=== PATIENT | male | born 1980 | race Two or more races ===

== ENCOUNTER 2025-02-12 10:47 | Inpatient (IN) | payer OTHER ==
[~2025-02-12] VITALS: Ht 175.3 cm; Wt 84.7 kg
--- NOTE | 2025-02-12 11:02 | ECG ---
[facility] Test Date: 2025-02-12 Test Time: 10:59:02 Pat Name: JEFFREY HILL Department: ER Room: [address] [place] [address] Gender: M Client Support Analyst: DANISHA : 1980 Requested By: RASHAD LAWS Order Number: [id number] Reading MD: Evaristo Pittman Measurements Intervals [place] Rate: 71 P: 81 NV: 185 QRS: -30 QRSD: 131 T: 102 QT: 439 QTc: 478 Interpretive Statements Sinus rhythm Consider left atrial enlargement LVH with secondary repolarization abnormality Borderline prolonged QT interval Electronically Signed On 02-15-2025 19:57:49 PDT by Evaristo Pittman Please click the below link to view image of tracing.
--- NOTE | 2025-02-12 11:14 | ED.PDOC ---
HPI Comments This is a 44 year old male presenting to the ED with chief complaint of chest pain. Patient reports that he was sudden awoken at 4am this morning with squeezing 9/10 left sided chest pain with associated SOB. Patient relays that he has had similar symptoms in the past. Patient states he has history of a previous CVA in June and [place]. Patient denies any N/V, headache, dizziness, cough, fever, chills, blurred vision, numbness, weakness, or tingling. Chief Complaint: Chest Pain Time Seen by MD: 11:12 Reviewed Notes: Nurses Notes, Medications, Allergies Allergies: Coded Allergies: NO KNOWN ALLERGIES (Unverified , 02/12/25) Information Source: Patient Mode of Arrival: Ambulatory Severity: Moderate Timing: Hours Duration: Since onset Prehospital treatment: None Location: Chest (L) Radiation: No Radiation Quality: Squeezing Onset: At Rest Cardiac Risk Factors: HTN PE Risk Factors: None History of: Similar pain in past, [place] Associated Signs and Symptoms: SOB Past Medical History PAST MEDICAL HISTORY: CHF, CVA, HTN, Liver, [place] Surgical History: Denies all surgeries Family History Family History: Reviewed,noncontributory to illness, Family hx of Cancer Social History Smoker: Non-Smoker Alcohol: Denies ETOH Use Drugs: Denies Drug Use Lives In: Home Constitutional: denies: chills, diaphoresis, fatigue, fever, malaise, sweats, weakness, others EENTM: denies: blurred vision, double vision, ear bleeding, ear discharge, ear drainage, ear pain, ear ringing, eye pain, eye redness, hearing loss, mouth pain, mouth swelling, nasal discharge, nose bleeding, nose congestion, nose pain, photophobia, tearing, throat pain, throat swelling, voice changes, others Respiratory: reports: shortness of breath; denies: cough, hemoptysis, orthopnea, SOB at rest, SOB with excertion, stridor, wheezing, others Cardiovascular: reports: chest pain; denies: dizzy spells, diaphoresis, Dyspnea on exertion, edema, irregular heart beat, left arm pain, lightheadedness, palpitations, PND, syncope, others Gastrointestinal: denies: abdomen distended, abdominal pain, blood streaked bowels, constipated, diarrhea, dysphagia, difficulty swallowing, hematemesis, melena, nausea, poor appetite, poor fluid intake, rectal bleeding, rectal pain, vomiting, others Genitourinary: denies: burning, dysuria, flank pain, frequency, hematuria, incontinence, penile discharge, penile sore, pain, testicle pain, testicle sw elling, urgency, others Neurological: denies: dizziness, fainting, headache, left sided numbness, left sided weakness, numbness, paresthesia, pre-existing deficit, right sided numbness, right sided weakness, seizure, speech problems, tingling, tremors, weakness, others Musculoskeletal: denies: back pain, gout, joint pain, joint swelling, muscle pain, muscle stiffness, neck pain, others Integumetry: denies: bruises, change in color, change in hair/nails, dryness, laceration, lesions, lumps, rash, wounds, others Allergic/Immunocompromised: denies: Difficulty Healing, Frequent Infections, Hives, Itching, others Hematologic/Lymphatic: denies: anemia, blood clots, easy bleeding, easy bruising, swollen glands, others Endocrine: denies: excessive hunger, excessive sweating, excessive thirst, excessive urination, flushing, intolerance to cold, intolerance to heat, unexplained weight gain, unexplained weight loss, others Psychiatric: denies: anxiety, bipolar disorder, depression, hopeless, panic disorder, schizophrenia, sleepless, suicidal, others All Other Systems: Reviewed and Negative Physical Exam General Appearance: Moderate Distress HEENT: Normal ENT Inspection, Pharynx Normal, TMs Normal Neck: Full Range of Motion, Non-Tender, Normal, Normal Inspection Respiratory: Chest Non-Tender, Lungs Clear, No Accessory Muscle Use, No Respiratory Distress, Normal Breath Sounds Cardiovascular: No Edema, No JVD, No Murmur, No Gallop, Normal Peripheral Pulses, Regular Rate/Rhythm Breast Exam: Deferred Gastrointestinal: No Organomegaly, Non Tender, No Pulsatile Mass, Normal Bowel Sounds, Soft Genitalia: Deferred Pelvic: Deferred Rectal: Deferred Extremities: No calf tenderness, Normal capillary refill, Normal inspection, Normal range of motion, Non-tender, No pedal edema Musculoskeletal : Apperance: Normal Neurologic: Alert, manager basketball II-XII nml as Tested, Motor Weakness, Normal Affect, Normal Mood, No Sensory Deficits Cerebellar Function: Normal Reflexes: Normal Skin: Dry, Pallor, Warm Lymphatic: No Adenopathy EKG EKG : Pulse Rate (adult): 71 [place]: Normal Cardiac Rhythm: NSR Block: None Hypertrophy: LAE ST: Normal Was a procedure done? Was a procedure done?: No CP Differential Dx Differential Diagnosis: Angina, [place], Pulmonary Embolus Differential Diagnosis: CHF Differential Diagnosis: Pericarditis X-Ray, Labs, Meds, VS Vital Signs Date Time Temp Pulse Resp B/P (MAP) Pulse Ox O2 Delivery O2 Flow Rate FiO2 02/12/25 11:53 68 02/12/25 11:25 87 20 97 Room Air* 0 21 02/12/25 11:25 98.3 87 20 97/64 (75) 97 98.3 02/12/25 11:14 71 02/12/25 10:59 71 02/12/25 10:50 97.5 82 18 104/58 (73) 97 97.5 Lab Test 02/12/25 12:06 02/12/25 11:09 Range/Units Troponin I High Sensitivity 8 8 </=54 ng/L White Blood Count 8.0 4.4-10.8 10^3/uL Red Blood Count 4.40 L 4.5-5.90 10^6/uL Hemoglobin 13.8 13.5-17.5 g/dL Hematocrit 41.6 41.0-53.0 % Mean Corpuscular Volume 94.5 80.0-100.0 fL Mean Corpuscular Hemoglobin 31.4 28.0-32.0 pg Mean Corpuscular Hemoglobin Concent 33.2 32.0-36.0 g/dL Red Cell Distribution Width 15.5 H 11.8-14.3 % Platelet Count 392 140-450 10^3/uL Mean Platelet Volume 7.2 6.9-10.8 fL Neutrophils (%) (Auto) 64.7 37.0-80.0 % Lymphocytes (%) (Auto) 22.9 10.0-50.0 % Monocytes (%) (Auto) 7.8 0.0-12.0 % Eosinophils (%) (Auto) 3.3 0.0-7.0 % Basophils (%) (Auto) 1.3 0.0-2.0 % Neutrophils # (Auto) 5.2 1.6-8.6 10 ^3/uL Lymphocytes # (Auto) 1.8 0.4-5.4 10 ^3/uL Monocytes # (Auto) 0.6 0-1.3 10 ^3/uL Eosinophils # (Auto) 0.3 0-0.8 10 ^3/uL Basophils # (Auto) 0.1 0-0.2 10 ^3/uL Nucleated Red Blood Cells 0.1 % D-Dimer, Quantitative 0.71 H 0.0-0.49 mg/L FEU Urine Color Light-yellow Yellow Urine Clarity Clear Clear Urine pH 5.5 5.0-9.0 Urine Specific [place] 1.021 1.001-1.035 Urine Protein Negative Negative Urine Ketones Negative Negative Urine Blood Negative Negative /uL Urine Nitrite Negative Negative Urine Bilirubin Negative Negative Urine Urobilinogen Normal Negative mg/dL Urine Leukocyte Esterase Negative Negative /uL Urine RBC None seen 0 - 3 /hpf Urine Microscopic WBC 1 0-3 /HPF Urine Squamous Epithelial Cells None seen <5 /hpf Urine Bacteria None seen None Seen /hpf Urine Hyaline Casts Few 0 - 2 /lpf Urine Glucose Normal Normal mg/dL Sodium Level 144 136-145 mmol/L Potassium Level 3.5 3.5-5.1 mmol/L Chloride Level 110 H 98-107 mmol/L Carbon Dioxide Level 22 20-31 mmol/L Anion Gap 12 5-15 Blood Urea Nitrogen 20 9-23 mg/dL Creatinine 1.13 0.700-1.30 mg/dL Glomerular Filtration Rate Calc 81 >90 mL/min BUN/Creatinine Ratio 17.7 10.0-20.0 Serum Glucose 91 74-106 mg/dL Calcium Level 9.6 8.7-10.4 mg/dL B-Type Natriuretic Peptide 1276.79 0-100 pg/mL Current Medications Medications (Trade) Dose Ordered Sig/Turner Route Start Time Stop Time Status Last Admin Aspirin 162 mg ONCE ONCE PO 02/12/25 11:15 02/12/25 11:16 DC 02/12/25 11:47 Sodium Chloride 1,000 ml @ 1,000 mls/hr Q1H ONCE IV 02/12/25 11:30 02/12/25 12:29 DC 02/12/25 11:40 IV Hep-Lock was established The patient was given aspirin here in the emergency department's The patient was bolused with a normal saline bolus of 1 L secondary to hypotension at 97/64 The patient's urine test is negative The chemistry panel is within normal limits The BNP is elevated at 1276.79 The CBC is within normal limits The troponin level is negative x2 A chest x-ray shows: IMPRESSION: Mild cardiomegalyNo acute cardiopulmonary disease. A cardiology consult be obtained The patient is being admitted Images Reviewed?: Images reviewed and evaluated by me Time of 1ST Reevaluation: 13:56 Reevaluation 1ST: Unchanged Patient Education/Counseling: Diagnosis, Treatment, Prognosis Family Education/Counseling: No Family Present Additional Information Reviewed patient's previous visit(s): None The following tests were ordered, and results were reviewed by me: CBC, BMP, Troponin, EKG, UA, BNP, Chest XR Additional information was gathered from interviewing the following independent historian: None I reviewed and agreed with the following test results read by other provider: Chest XR I discussed treatments and results with medical personnel and: PATIENT Comprehensive systems review obtained and negative except for what is stated in the HPI. SEPSIS Sepsis Screen Physician Orders Electrocardigram (02/12/25 14:01) Chest Portable (02/12/25 11:13) Heplock Iv (02/12/25 11:13) Clay Temperer (02/12/25 11:13) Blood Pressure (02/12/25 11:13) Pulse Oximetry (02/12/25 11:13) Vital Signs Date Time Temp Pulse Resp B/P (MAP) Pulse Ox O2 Delivery O2 Flow Rate FiO2 02/12/25 11:53 68 02/12/25 11:25 87 20 97 Room Air* 0 21 02/12/25 11:25 98.3 87 20 97/64 (75) 97 98.3 02/12/25 11:14 71 02/12/25 10:59 71 02/12/25 10:50 97.5 82 18 104/58 (73) 97 97.5 Laboratory Tests Test 02/12/25 11:09 White Blood Count 8.0 10^3/uL (4.4-10.8) Medications Medications Dose Ordered Sig/Turner Route Start Time Stop Time Status Last Admin Dose Admin Aspirin 162 mg ONCE ONCE PO 02/12/25 11:15 02/12/25 11:16 DC 02/12/25 11:47 Sodium Chloride 1,000 ml @ 1,000 mls/hr Q1H ONCE IV 02/12/25 11:30 02/12/25 12:29 DC 02/12/25 11:40 Departure 1 Departure Time of Disposition: 13:57 Impression: Primary Impression: Chest pain, rule out acute myocardial infarction Disposition: 09 ADMITTED INPATIENT Admit to: Tele Condition: Fair Critical Care Note Critical Care Time?: Yes (45 min-critical care time only) Stability Stability form required: Yes Unstable for transfer: Telemetry monitoring (Telemetry monitoring required), ED Physician Assesment (Clinical assesment) Heart Score Heart Score: Heart Score Response (Comments) Value History Highly Suspicious 2 EKG Repolarization Disturb 1 Age 45-64 1 Risk Factors >3 or Hx ASHD 2 Troponin Normal limit 0 Total 6 I personally scribed for RASHAD LAWS MD ([email or web address]) on 02/12/25 at 11:14. Electronically submitted by Brad Monroe ([email or web address]). I personally scribed for RASHAD LAWS MD ([email or web address]) on 02/12/25 at 11:14. Electronically submitted by Brad Monroe ([email or web address]). I personally scribed for RASHAD LAWS MD ([email or web address]) on 02/12/25 at 11:15. Electronically submitted by Brad Monroe ([email or web address]). RASHAD LAWS MD Feb 12, 2025 11:14
[2025-02-12 11:25] VITALS: PULSE 87; RESP 20; O2SAT 97
[2025-02-12 11:29] LABS: Basophils # (auto) 0.1 10 ^3/uL (0-0.2); Basophils % (auto) 1.3 % (0.0-2.0); Eosinophils # (auto) 0.3 10 ^3/uL (0-0.8); Eosinophils % (auto) 3.3 % (0.0-7.0); Hematocrit 41.6 % (41.0-53.0); Hemoglobin 13.8 g/dL (13.5-17.5); Lymphocytes # (auto) 1.8 10 ^3/uL (0.4-5.4); Lymphocytes % (auto) 22.9 % (10.0-50.0); Mean Corpuscular Hemoglobin 31.4 pg (28.0-32.0); Mean Corpuscular Hgb Conc. 33.2 g/dL (32.0-36.0); Mean Corpuscular Volume 94.5 fL (80.0-100.0); Monocytes # (auto) 0.6 10 ^3/uL (0-1.3); Monocytes % (auto) 7.8 % (0.0-12.0); Neutrophils # (auto) 5.2 10 ^3/uL (1.6-8.6); Neutrophils % (auto) 64.7 % (37.0-80.0); Nucleated Red Blood Cells % 0.1 %; Platelet Count (auto) 392 10^3/uL (140-450); Red Cell Distribution Width 15.5 % (11.8-14.3)
[2025-02-12 11:31] LABS: Sodium 144 mmol/L (136-145)
[2025-02-12 11:32] LABS: Anion Gap 12 (5-15); Calcium 9.6 mg/dL (8.7-10.4); Carbon Dioxide 22 mmol/L (20-31)
[2025-02-12 11:34] LABS: Chloride 110 mmol/L (98-107); Potassium 3.5 mmol/L (3.5-5.1)
[2025-02-12 11:37] LABS: BUN/Creatinine Ratio 17.7 (10.0-20.0); Blood Urea Nitrogen 20 mg/dL (9-23); Glucose 91 mg/dL (74-106)
[2025-02-12] MEDS: SODIUM CHLORIDE 0.9% 1,000 ML IV ONE (11:40)
[2025-02-12] MEDS: ASPirin 81 mg TAB PO ONE (11:47)
--- NOTE | 2025-02-12 12:14 | ECG ---
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
--- NOTE | 2025-02-12 12:43 | DVH ---
EXAM: XY CHEST PORTABLE Indication: CP Technique: Single frontal view of the chest was obtained Comparison: None FINDINGS: Lines and Tubes: None Lungs: No focal consolidation. Pleura: No effusion. No pneumothorax. Cardiomediastinal contours: Mild cardiomegaly Bones: No acute osseous abnormality. IMPRESSION: Mild cardiomegalyNo acute cardiopulmonary disease.
[2025-02-12 13:03] LABS: Urine Bacteria None Seen /hpf (None Seen)
[2025-02-12 13:08] LABS: Urine Blood Negative /uL (Negative); Urine Clarity Clear (Clear); Urine Color Light-Yellow (Yellow); Urine Hyaline Cast FEW /lpf (0 - 2); Urine Protein, UAD Negative (Negative); Urine Specific Gravity 1.021 (1.001-1.035); Urine Squamous Epithelial Cell None Seen /hpf (<5); Urine Urobilinogen Normal (Negative); Urine WBC 1 /HPF (0-3); Urine pH 5.5 (5.0-9.0)
[2025-02-12] MEDS ORDERED: ONDANSETRON HCL 4 MG/2 ML VIAL IV PRN (16:00)
[2025-02-12] MEDS ORDERED: NITROGLYCERIN 0.4 MG SL TAB SL PRN (16:00)
[2025-02-12] MEDS ORDERED: ACETAMINOPHEN 325 MG TAB PO PRN (16:00)
[2025-02-12] MEDS ORDERED: MORPHINE SULFATE INJ 2 MG/ml SYRG IV PRN (16:00)
[2025-02-12] MEDS ORDERED: DOCUSATE SOD 100 MG CAP PO PRN (16:00)
[2025-02-12] MEDS ORDERED: ASPI-628 PO (16:13)
[2025-02-12] MEDS ORDERED: EMPA1TAB PO (16:13)
[2025-02-12] MEDS ORDERED: APIX5TAB PO (16:13)
[2025-02-12] MEDS ORDERED: ATOR80TA PO (16:13)
[2025-02-12] MEDS ORDERED: SACU1TAB PO (16:13)
[2025-02-12] MEDS ORDERED: FURO40TA4 PO (16:13)
[2025-02-12] MEDS ORDERED: CARV3.1240 PO (16:13)
[2025-02-12] MEDS ORDERED: TOPI50TA53 PO (16:14)
[2025-02-12] MEDS ORDERED: DEXTROSE (50%) 50ML SYRG IV PRN (16:15)
--- NOTE | 2025-02-12 16:36 | DVHHP2 ---
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 Patient states he woke up at 0400 this morning with chest pain and associated shortness of breath. He states the pain was a squeezing pain. He tried to wait to hope it would go away, but it did not get better so he came to the hospital. Patient states he had an WA in 2022 and this feels similar. He states no cardiac stents were placed when he had his WA. 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 Endocrine: Diabetes Past Surgical History: None Smoke: No ALCOHOL: none Drugs: None Lives: Other (Board and care) Domestic Violence: Neg Review of Systems Constitutional: No: Fever, Chills, Sweats, Weakness, Malaise, Other Eyes: No: Pain, Vision change, Conjunctivae inflammation, Eyelid inflammation, Other, Redness ENT: No: Ear pain, Ear discharge, Nose pain, Nose discharge, Nose congestion, Mouth pain, Mouth swelling, Throat pain, Throat swelling, Other Respiratory: Shortness of breath, SOB with excertion; No: Cough, Dry, Wheezing, Hemoptysis, Pleuritic Pain, Sputum, Wheezing, Other Cardiovascular: Chest Pain; No: Palpitations, Orthopnea, Paroxysmal Noc. Dyspnea, Edema, Lt Headedness, Other Gastrointestinal: No: Nausea, Vomiting, Abdominal Pain, Diarrhea, Constipation, Melena, Hematochezia, Other Genitourinary: No Dysuria, No Frequency, No Incontinence, No Hematuria, No Retention, No Other Musculoskeletal: No: other, neck pain, shoulder pain, arm pain, back pain, hand pain, leg pain, foot pain Skin: No: Rash, Lesions, Jaundice, Bruising, Other Neurological: No: Weakness, Numbness, Incoordination, Change in speech, Confusion, Seizures, Other Allergies: Coded Allergies: NO KNOWN ALLERGIES (Unverified , 02/12/25) Medications Current Medications Medications Dose Ordered Sig/Turner Route Start Time Stop Time Status Last Admin Dose Admin Acetaminophen/ Hydrocodone Bitart 1 tab Q4HP PRN PO 02/12/25 16:00 UNV Ondansetron HCl 4 mg Q4HP PRN IV 02/12/25 16:00 UNV Docusate Sodium 100 mg BIDPRN PRN PO 02/12/25 16:00 UNV Acetaminophen 650 mg Q6HP PRN PO 02/12/25 16:00 UNV Nitroglycerin 0.4 mg Q5MINP PRN SL 02/12/25 16:00 UNV Morphine Sulfate 2 mg Q30M PRN IV 02/12/25 16:00 UNV Exam Vital Signs Vital Signs Date Time Temp Pulse Resp B/P (MAP) Pulse Ox O2 Delivery O2 Flow Rate FiO2 02/12/25 14:42 76 16 107/71 (83) 98 02/12/25 11:25 Room Air* 0 21 02/12/25 11:25 98.3 98.3 General Appearance: Alert, Oriented X3, Cooperative, mild distress HEENT: Atraumatic, PERRLA, Mucous membr. moist/pink Respiratory: Clear to auscultation, Normal air movement Cardiovascular: Regular rate, Normal S1, Normal S2, No murmurs Abdominal: Normal bowel sounds, Soft, No tenderness, No hepatospenomegaly Extremities: No clubbing, No cyanosis, No edema, Normal pulses, No tenderness/swelling Skin: No rashes, No breakdown, No significant lesion Neuro: Normal gait, Normal speech, Strength at 5/5 X4 ext, Normal tone Psych/Mental Status: Mental status NL, Mood NL Labs/Xrays Labs Test 02/12/25 12:06 02/12/25 11:09 Range/Units Troponin I High Sensitivity 8 </=54 ng/L White Blood Count 8.0 4.4-10.8 10^3/uL Red Blood Count 4.40 L 4.5-5.90 10^6/uL Hemoglobin 13.8 13.5-17.5 g/dL Hematocrit 41.6 41.0-53.0 % Mean Corpuscular Volume 94.5 80.0-100.0 fL Mean Corpuscular Hemoglobin 31.4 28.0-32.0 pg Mean Corpuscular Hemoglobin Concent 33.2 32.0-36.0 g/dL Red Cell Distribution Width 15.5 H 11.8-14.3 % Platelet Count 392 140-450 10^3/uL Mean Platelet Volume 7.2 6.9-10.8 fL Neutrophils (%) (Auto) 64.7 37.0-80.0 % Lymphocytes (%) (Auto) 22.9 10.0-50.0 % Monocytes (%) (Auto) 7.8 0.0-12.0 % Eosinophils (%) (Auto) 3.3 0.0-7.0 % Basophils (%) (Auto) 1.3 0.0-2.0 % Neutrophils # (Auto) 5.2 1.6-8.6 10 ^3/uL Lymphocytes # (Auto) 1.8 0.4-5.4 10 ^3/uL Monocytes # (Auto) 0.6 0-1.3 10 ^3/uL Eosinophils # (Auto) 0.3 0-0.8 10 ^3/uL Basophils # (Auto) 0.1 0-0.2 10 ^3/uL Nucleated Red Blood Cells 0.1 % D-Dimer, Quantitative 0.71 H 0.0-0.49 mg/L FEU Urine Color Light-yellow Yellow Urine Clarity Clear Clear Urine pH 5.5 5.0-9.0 Urine Specific [place] 1.021 1.001-1.035 Urine Protein Negative Negative Urine Ketones Negative Negative Urine Blood Negative Negative /uL Urine Nitrite Negative Negative Urine Bilirubin Negative Negative Urine Urobilinogen Normal Negative mg/dL Urine Leukocyte Esterase Negative Negative /uL Urine RBC None seen 0 - 3 /hpf Urine Microscopic WBC 1 0-3 /HPF Urine Squamous Epithelial Cells None seen <5 /hpf Urine Bacteria None seen None Seen /hpf Urine Hyaline Casts Few 0 - 2 /lpf Urine Glucose Normal Normal mg/dL Sodium Level 144 136-145 mmol/L Potassium Level 3.5 3.5-5.1 mmol/L Chloride Level 110 H 98-107 mmol/L Carbon Dioxide Level 22 20-31 mmol/L Anion Gap 12 5-15 Blood Urea Nitrogen 20 9-23 mg/dL Creatinine 1.13 0.700-1.30 mg/dL Glomerular Filtration Rate Calc 81 >90 mL/min BUN/Creatinine Ratio 17.7 10.0-20.0 Serum Glucose 91 74-106 mg/dL Calcium Level 9.6 8.7-10.4 mg/dL B-Type Natriuretic Peptide 1276.79 0-100 pg/mL EXAM: XY CHEST PORTABLE FINDINGS: Lines and Tubes: None Lungs: No focal consolidation. Pleura: No effusion. No pneumothorax. Cardiomediastinal contours: Mild cardiomegaly Bones: No acute osseous abnormality. IMPRESSION: Mild cardiomegaly No acute cardiopulmonary disease. Assessment/Plan Assessment/Plan Assessment: Chest pain, rule out acute myocardial infarction, Elevated D-dimer, Elevated BNP, Hypertension, CHF, Plan: Admit to Tele, Cardiology consult, ECHO, TSH, Lipid panel, A1c, IV Lasix, Home medications reconciled, Plan discussed with: Patient My Orders Orders - TABITHA ORDOÑEZ Procedure Category Date Status Time Admit ADMIT 02/12/25 Transmitted 15:58 Code Status CODE 02/12/25 Transmitted 15:58 2 Gm Sodium Diet DIET 02/12/25 Transmitted Dinner Hydrocodone-Acet PHA 02/12/25 Logged 5/325mg Tab ([place] 16:00 Ondansetron Hcl PHA 02/12/25 Logged (Zofran) 16:00 Docusate Sodium PHA 02/12/25 Logged Capsule (Colace 16:00 Complete Blood Count LAB 02/13/25 Verified 04:00 Comprehensive LAB 02/13/25 Verified Metabolic Panel 04:00 Echo 2d Mode Cardiac US 02/12/25 Logged DOP 15:58 Condition: Serious MARY GRACE 02/12/25 In Process 15:58 Acetaminophen Tablet PHA 02/12/25 Logged (Tylenol Tablet) 16:00 Nitroglycerin PHA 02/12/25 Logged Sublingual (Ntrostat 16:00 Morphine Sulfate PHA 02/12/25 Logged Injection 16:00 Stat Ekg For Chest MARY GRACE 02/12/25 In Process Pain 15:58 Notify Of Changes MARY GRACE 02/12/25 In Process From Base 15:58 Roof Truss Machine Tender For MARY GRACE 02/12/25 In Process 24 Hours 15:58 Emergency Dysrhythmia MARY GRACE 02/12/25 In Process Protocol 15:58 Rhythm Strips Once MARY GRACE 02/12/25 In Process Every Shift 15:58 Oxygen By Nasal RT 02/12/25 Transmitted Cannula 15:58 Glucose Blood PHA 02/12/25 Verified (Accu-Chek Comfort 17:00 Bedtime Insulin Scale PHA 02/12/25 Verified 22:00 Moderate Insulin Ss PHA 02/12/25 Verified 17:00 Dextrose 50% Syringe PHA 02/12/25 Verified 16:15 Apixaban (Eliquis) PHA 02/12/25 Verified 22:00 Aspirin Enteric PHA 02/13/25 Verified Coated Tablet 10:00 Carvedilol Tablet PHA 02/12/25 Verified (Coreg Tablet) 22:00 Empagliflozin PHA 02/13/25 Verified (Jardiance) 10:00 Furosemide Tablet PHA 02/13/25 Verified (Lasix Tablet) 10:00 Sacubitril-Valsartan PHA 02/12/25 Verified (Entresto 24-26 Mg 22:00 (Nf) Atorvastatin PHA 02/12/25 Verified Calcium (Lipitor) 22:00 Date of Service: Feb 12, 2025 Billing Provider: TABITHA ORDOÑEZ Common Visit Codes: [id number] INP/OBS CARE (MOD) TABITHA ORDOÑEZ Feb 12, 2025 16:36
[2025-02-12] MEDS: ACCU-CHEK COMFORT CURVE STRIP VI SCH (18:04)
[2025-02-12] MEDS: InsuLIN REG 1unit/0.01ml Soln (100units/ml) SC SCH ×2 (18:04→22:00)
[2025-02-12] MEDS: FUROSEMIDE 20 MG/2 ML VIAL IV ONE (18:08)
[2025-02-12] MEDS: HYDROcodone-ACET 5/325MG TAB PO PRN (18:17)
[2025-02-12] MEDS: CARVEDILOL 3.125 MG TAB PO SCH (22:00)
[2025-02-12] MEDS: SACUBITRIL-VALSARTAN 24mg/26mg TAB PO SCH (22:00)
[2025-02-12] MEDS: APIXABAN 5 MG TAB PO SCH (23:24)
[2025-02-12 23:33] VITALS: BP 115/68; PULSE 63; PULSE 75; RESP 17; RESP 18; TEMP 98.1; O2SAT 96; O2SAT 98
[2025-02-13 01:00] VITALS: BP 111/64; PULSE 63; RESP 18; TEMP 97.8; O2SAT 98
[2025-02-13 05:00] VITALS: BP 103/66; PULSE 78; RESP 16; TEMP 97.5; O2SAT 98
[2025-02-13] MEDS: EMPAGLIFLOZIN 10 MG TAB PO SCH (08:57)
[2025-02-13] MEDS: ASPirin-EC 81 mg tab PO SCH (08:58)
[2025-02-13] MEDS: FUROSEMIDE 40 MG TAB PO SCH (09:05)
[2025-02-13 09:16] VITALS: BP 105/55; PULSE 88; RESP 16; TEMP 97.9; O2SAT 97
[2025-02-13 11:38] LABS: Basophils # (auto) 0.1 10 ^3/uL (0-0.2); Eosinophils # (auto) 0.3 10 ^3/uL (0-0.8); Hematocrit 40.1 % (41.0-53.0); Hemoglobin 13.6 g/dL (13.5-17.5); Lymphocytes # (auto) 1.8 10 ^3/uL (0.4-5.4); Lymphocytes % (auto) 20.5 % (10.0-50.0); Mean Corpuscular Hemoglobin 31.9 pg (28.0-32.0); Mean Corpuscular Hgb Conc. 33.9 g/dL (32.0-36.0); Mean Corpuscular Volume 94.2 fL (80.0-100.0); Monocytes # (auto) 0.8 10 ^3/uL (0-1.3); Monocytes % (auto) 8.9 % (0.0-12.0); Neutrophils # (auto) 5.8 10 ^3/uL (1.6-8.6); Neutrophils % (auto) 66.6 % (37.0-80.0); Nucleated Red Blood Cells % 0.1 %; Platelet Count (auto) 331 10^3/uL (140-450); Red Blood Cells 4.25 10^6/uL (4.5-5.90); Red Cell Distribution Width 15.7 % (11.8-14.3); White Blood Cell 8.7 10^3/uL (4.4-10.8)
[2025-02-13 11:49] LABS: Alanine Aminotransferase < 9 U/L (7-40); Albumin 3.9 g/dL (3.2-4.8); Alkaline Phosphatase 35 U/L (46-116); Anion Gap 8 (5-15); Aspartate Aminotransferase 12 U/L (<34); BUN/Creatinine Ratio 18.2 (10.0-20.0); Blood Urea Nitrogen 16 mg/dL (9-23); Calcium 9.4 mg/dL (8.7-10.4); Carbon Dioxide 25 mmol/L (20-31); Chloride 112 mmol/L (98-107); Glucose 96 mg/dL (74-106); Potassium 3.5 mmol/L (3.5-5.1); Sodium 145 mmol/L (136-145); Total Protein 6.1 g/dL (5.7-8.2)
[2025-02-13 12:24] VITALS: BP 105/55; PULSE 88; RESP 16; TEMP 97.9; O2SAT 97
--- NOTE | 2025-02-13 12:41 | DVHDS2 ---
Discharge Summary Date of Admission Feb 12, 2025 at 15:58 Date of Discharge: Feb 13, 2025 Admitting Diagnosis Chest pain Labs/Diagnostic Data: Laboratory Results Test 02/13/25 11:06 02/13/25 06:45 02/12/25 12:06 02/12/25 11:09 White Blood Count 8.7 10^3/uL (4.4-10.8) Red Blood Count 4.25 10^6/uL (4.5-5.90) Hemoglobin 13.6 g/dL (13.5-17.5) Hematocrit 40.1 % (41.0-53.0) Mean Corpuscular Volume 94.2 fL (80.0-100.0) Mean Corpuscular Hemoglobin 31.9 pg (28.0-32.0) Mean Corpuscular Hemoglobin Concent 33.9 g/dL (32.0-36.0) Red Cell Distribution Width 15.7 % (11.8-14.3) Platelet Count 331 10^3/uL (140-450) Mean Platelet Volume 7.5 fL (6.9-10.8) Neutrophils (%) (Auto) 66.6 % (37.0-80.0) Lymphocytes (%) (Auto) 20.5 % (10.0-50.0) Monocytes (%) (Auto) 8.9 % (0.0-12.0) Eosinophils (%) (Auto) 3.0 % (0.0-7.0) Basophils (%) (Auto) 1.0 % (0.0-2.0) Neutrophils # (Auto) 5.8 10 ^3/uL (1.6-8.6) Lymphocytes # (Auto) 1.8 10 ^3/uL (0.4-5.4) Monocytes # (Auto) 0.8 10 ^3/uL (0-1.3) Eosinophils # (Auto) 0.3 10 ^3/uL (0-0.8) Basophils # (Auto) 0.1 10 ^3/uL (0-0.2) Nucleated Red Blood Cells 0.1 % Sodium Level 145 mmol/L (136-145) Potassium Level 3.5 mmol/L (3.5-5.1) Chloride Level 112 mmol/L (98-107) Carbon Dioxide Level 25 mmol/L (20-31) Anion Gap 8 (5-15) Blood Urea Nitrogen 16 mg/dL (9-23) Creatinine 0.88 mg/dL (0.700-1.30) Glomerular Filtration Rate Calc 107 mL/min (>90) BUN/Creatinine Ratio 18.2 (10.0-20.0) Serum Glucose 96 mg/dL (74-106) Calcium Level 9.4 mg/dL (8.7-10.4) Total Bilirubin 1.0 mg/dL (0.2-1.0) Aspartate Amino Transferase (AST) 12 U/L (<34) Alanine Aminotransferase (ALT) < 9 U/L (7-40) Alkaline Phosphatase 35 U/L (46-116) Total Protein 6.1 g/dL (5.7-8.2) Albumin 3.9 g/dL (3.2-4.8) POC Glucose 94 mg/dl (70-106) Troponin I High Sensitivity 8 ng/L (</=54) D-Dimer, Quantitative 0.71 mg/L FEU (0.0-0.49) Urine Color Light-yellow (Yellow) Urine Clarity Clear (Clear) Urine pH 5.5 (5.0-9.0) Urine Specific [place] 1.021 (1.001-1.035) Urine Protein Negative (Negative) Urine Ketones Negative (Negative) Urine Blood Negative /uL (Negative) Urine Nitrite Negative (Negative) Urine Bilirubin Negative (Negative) Urine Urobilinogen Normal mg/dL (Negative) Urine Leukocyte Esterase Negative /uL (Negative) Urine RBC None seen /hpf (0 - 3) Urine Microscopic WBC 1 /HPF (0-3) Urine Squamous Epithelial Cells None seen /hpf (<5) Urine Bacteria None seen /hpf (None Seen) Urine Hyaline Casts Few /lpf (0 - 2) Urine Glucose Normal mg/dL (Normal) B-Type Natriuretic Peptide 1276.79 pg/mL (0-100) Other Laboratory Tests 02/13/25 11:06 Brief Hx & Hospital Course: History of Present Illness Deangelo Donato is a 44-year-old male with past medical 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 Patient states he woke up at 0400 this morning with chest pain and associated shortness of breath. He states the pain was a squeezing pain. He tried to wait to hope it would go away, but it did not get better so he came to the hospital. Patient states he had an AK in 2022 and this feels similar. He states no cardiac stents were placed when he had his AK. Course of hospitalization: Patient had troponins negative x3. EKG were found to have no ST-T changes. Bundle-branch block was noted. Patient was assessed to have no pain at this time. He described the pain as squeezing in nature rated a 5/10. Patient does not remember the last time he has had pain. Patient will be discharged home given poor likelihood of patient having acute coronary syndrome. He is instructed to follow up with his PCP in 1-2 weeks. He will be provided no new medications in his instructed to continue all previous home medications. Physical examination General: Alert and Oriented x3. No acute distress. Well-nourished. Eyes: EOMI. Anicteric. HENT: Moist mucous membranes. Lungs: Clear to auscultation bilaterally. No accessory muscle use. Cardiovascular: Regular rate and rhythm. No murmur. No JVD. Abdomen: Soft, non-tender and non-distended. No palpable masses. Extremities: No edema. Non-tender. Skin: No rashes or lesions. Warm. Neurologic: No focal neurological deficits. CN II-XII grossly intact, but not individually tested. Psychiatric: Cooperative. Appropriate mood and affect. Total time spent with patient discussing and formulating plan of care: 35 minutes. This medical document was created using an electronic medical record system with [employer] dictation system. Although this document has been carefully reviewed, there may still be some phonetic and typographical errors. These areas are purely typographical due to imperfections of the software programs, and do not reflect any compromise in the patient's medical care. Condition at Discharge: Fair Final Diagnosis/Problems List Chest pain, probable costochondritis Secondary diagnosis: History of CVA -primary hypertension -myocardial infarction Discharge Disposition: Home Discharge Instruct/Medications Diet: Cardiac 2g Na,low cholest Activity: No Restrictions, As Tolerated Follow Up/Referral: Follow up with PCP in 1-2 weeks Medications: Continue all previous home medication 36 Discharge Statement: "Patient was advised to return to the ER or call 911 if any headaches, dizziness, shortness of breath, chest pain, abdominal pain, bleeding, fevers, or worsening of medical condition. Patient was counseled about treatment plan, medications, possible side effects, patientverbalized understanding. All questions were answered to the best of my ability. This discharge took greater then 30 minutes in planning, reviewing documentation, counseling the patient, and discussing with other team members." ASSESSMENT ASSESSMENT Assessment Chest pain, probable costochondritis Date of Service: Feb 13, 2025 Billing Provider: PIYUSH SANDHU NP Common Visit Codes: 72043-FCX/OBS DISCH DAY >30min PIYUHS SANDHU NP Feb 13, 2025 12:40
[2025-02-13] MEDS ORDERED: FURO40TA4 PO (13:09)
[2025-02-13] MEDS ORDERED: SACU1TAB PO (13:09)
[2025-02-13] MEDS ORDERED: APIX5TAB PO (13:09)
[2025-02-13] MEDS ORDERED: EMPA1TAB PO (13:09)
[2025-02-13] MEDS ORDERED: ATOR20TA50 PO (13:09)
[2025-02-13] MEDS ORDERED: ATORVASTATIN 20 MG TAB PO SCH (22:00)
--- NOTE | 2025-02-16 00:58 | DVHSR ---
APPROVED REPORT EXAM: Two-dimensional and M-mode echocardiogram with Doppler and color Doppler. Blood Pressure: 103/66 mmHg INDICATION R/O ACS RISK FACTORS Height: 5' 9", Weight: 186 DIMENSIONS LVDd8.2 (3.8-5.7cm)LA (2D)4.7 (1.9-4.0cm)Aortic Root3.2 (2.0-3.7cm) LVDs8.0 (2.5-4.0cm)LA (MM) (1.9-4.0cm)Aortic Cusp Exc1.9 (1.5-2.0cm) EF (%) 4.0 (55-70%)Rt. Atrium3.8 (1.9-4.0cm)Asc. Aorta cm IVSd1.1 (0.7-1.1cm)RV (D) (1.8-2.4cm) PWd1.1 (0.7-1.1cm) Mitral Valve MitralMitral Stenosis E wave1.00m/sMV Mean GR.mmHg A wave0.80m/sMV Peak GR.mmHg E/A ratio1.32D MVAcm2 Aortic Valve Aortic ValveAortic Stenosis V10.30m/[place] Mean GR.6mmHg V21.50m/[place] Peak GR.10mmHg Pulmonic Valve V20.80m/s Tricuspid Valve TR Velocity2.20m/s [id number] Conclusion HUGE DILATED LEFT VENTRICLE SEVERE LV GLOBAL HYPOKINESIS LV EF IS ONLY 4% MODERATELY DILATED LA NORMAL VALVES NO EFFUSION
== END 2025-02-13 13:21 | disposition home or self-care (01) | DRG 203 ==
LOC: ER 10:47 → OVERFLOW 15:26
PROVIDERS: ADMIT Nurse Practitioner Acute Care; ATTEND Nurse Practitioner Acute Care
DX: M94.0 Chondrocostal junction syndrome [Tietze] (principal); I11.0 Hypertensive heart disease with heart failure; I50.9 Heart failure, unspecified; E11.9 Type 2 diabetes mellitus without complications; I69.320 Aphasia following cerebral infarction; I25.2 Old myocardial infarction; E78.5 Hyperlipidemia, unspecified
CPT/HCPCS: 36415; 71045; 80048; 80053; 81001; 82962; 83880; 84484; 85025; 85379; 93005; 93306; 96360; 99291; G0378